=== PATIENT | male | born 1990 | race African-American/Black ===

== ENCOUNTER 2016-03-29 13:19 | Emergency (ER) | payer OTHER, MEDICAID ==
[~2016-03-29] VITALS: Ht 177.8 cm; Wt 85.0 kg
[2016-03-29 13:21] VITALS: BP 140/91; PULSE 95; RESP 16; TEMP 98.9; O2SAT 100
[2016-03-29] MEDS ORDERED: ADDE30TA PO (13:23)
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
[2016-03-29] MEDS ORDERED: MORPHINE SULFATE 8 MG/ML INJ IM ONE (13:45)
[2016-03-29] MEDS ORDERED: MORPHINE SULFATE 4 MG/ML INJ IV PUSH ONE (14:00)
[2016-03-29] MEDS ORDERED: SODIUM CHLOR 0.9% 1000 ML INJ 1,000 ML IV ONE (14:00)
[2016-03-29] MEDS ORDERED: ONDANSETRON HCL 4 MG/2 ML VIAL IV PUSH ONE (14:00)
[2016-03-29 14:39] VITALS: BP 155/84; PULSE 91; RESP 18; O2SAT 100
[2016-03-29] MEDS ORDERED: IOHEXOL 350 MG/ML 10 ML VIAL (for RAD DIAG) IV ONE (15:54)
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
[2016-03-29] MEDS ORDERED: CYCL1TAB29 PO (16:56)
[2016-03-29] MEDS ORDERED: IBUP800T23 PO (16:56)
[2016-03-29] MEDS ORDERED: LIDO1SOL8 SWISH-SWAL (17:07)
[2016-03-29 17:20] VITALS: BP 130/76; PULSE 74; RESP 18; O2SAT 98
== END 2016-03-29 17:21 | disposition home or self-care (01) ==
LOC: PHEFT 13:19
DX: M79.1 Myalgia (principal); R10.12 Left upper quadrant pain; Z72.0 Tobacco use; V48.5XXA Car driver injured in noncollision transport accident in traffic accident, initial encounter; Y99.8 Other external cause status
CPT/HCPCS: 70450; 71260; 72125; 74177; 96361; 96374; 96375; 99284; J2270; J2405; J7030; Q9967

== ENCOUNTER 2016-07-04 19:31 | Emergency (ER) | payer MEDICAID ==
[~2016-07-04] VITALS: Ht 177.8 cm; Wt 87.8 kg
[~2016-07-04 19:31] MED LIST: ADDE30TA PO; CYCL1TAB29 PO; IBUP800T23 PO; LIDO1SOL8 SWISH-SWAL
[2016-07-04 19:34] VITALS: BP 140/70; PULSE 78; RESP 16; TEMP 98.4; O2SAT 99
[2016-07-04 20:05] VITALS: BP 124/52; PULSE 76; RESP 17; O2SAT 96
[2016-07-04] MEDS ORDERED: SODIUM CHLORIDE 0.9% FLUSH 10 ML FLUSH IV FLUSH PRN (20:15)
--- NOTE | 2016-07-04 20:19 | PD ---
HPI Chief Complaint: Abnormal Results Time Seen by Provider: 19:58 Travel History International Travel<30 days: No Contact w/Intl Traveler<30days: No Traveled to known affect area: No History of Present Illness HPI 26-year-old male with HIV sent in by his infectious disease doctor for abnormal labs. The patient had laboratory performed on Sunday, 3 days ago, and reports that his liver enzymes were elevated. He tells me he was diagnosed with HIV when he was incarcerated 9 months ago and has not yet started treatment. He drinks alcohol daily stating that when he returns home from work in the evenings he drinks about 12 beers. He denies illicit drug use or IVDU. No abdominal pain. PFSH Past Medical History ADHD: Yes Diminished Hearing: No Social History Alcohol Use: Yes (OCC) Tobacco Use: Yes Substance Use: No Allergies-Medications (Allergen,Severity, Reaction): Coded Allergies: Tramadol (Verified Allergy, Severe, 07/04/16) Reported Meds & Prescriptions Reported Meds & Active Scripts Active No Active Prescriptions or Reported Medications Review of Systems Except as stated in HPI: all other systems reviewed are Neg Physical Exam Narrative GENERAL: Well-developed, well-nourished, comfortable, no acute distress. SKIN: Focused skin assessment warm/dry. No jaundice. HEAD: Atraumatic. Normocephalic. EYES: Pupils equal and round. No scleral icterus. No injection or drainage. ENT: Mucous membranes pink and moist. NECK: Trachea midline. No JVD. CARDIOVASCULAR: Regular rate and rhythm. RESPIRATORY: No accessory muscle use. Clear to auscultation. Breath sounds equal bilaterally. GASTROINTESTINAL: Abdomen soft, non-tender, nondistended. MUSCULOSKELETAL: No obvious deformities. No clubbing. No cyanosis. No edema. NEUROLOGICAL: Awake and alert. No obvious cranial nerve deficits. Motor grossly within normal limits. Normal speech. PSYCHIATRIC: Appropriate mood and affect; insight and judgment normal. Data Data Last Documented VS Vital Signs Date Time Temp Pulse Resp B/P Pulse Ox O2 Delivery O2 Flow Rate FiO2 07/04/16 20:05 Room Air 07/04/16 20:05 76 17 124/52 96 07/04/16 19:34 98.4 Orders Complete Blood Count With Diff (07/04/16 20:03) Comprehensive Metabolic Panel (07/04/16 20:03) Lipase (07/04/16 20:03) Prothrombin Time / Inr (Pt) (07/04/16 20:03) Act Partial Throm Time (Ptt) (07/04/16 20:03) Iv Access Insert/Monitor (07/04/16 20:03) Ecg Monitoring (07/04/16 20:03) Oximetry (07/04/16 20:03) Sodium Chloride 0.9% Flush (Ns Flush) (07/04/16 20:15) Us Abdomen Gallbladder (07/04/16 21:21) Labs Laboratory Tests Test 07/04/16 20:41 White Blood Count 8.5 TH/MM3 Red Blood Count 4.65 MIL/MM3 Hemoglobin 13.9 GM/DL Hematocrit 39.7 % Mean Corpuscular Volume 85.5 FL Mean Corpuscular Hemoglobin 30.0 PG Mean Corpuscular Hemoglobin 35.0 % Concent Red Cell Distribution Width 12.5 % Platelet Count 223 TH/MM3 Mean Platelet Volume 8.4 FL Neutrophils (%) (Auto) 64.9 % Lymphocytes (%) (Auto) 22.8 % Monocytes (%) (Auto) 9.3 % Eosinophils (%) (Auto) 2.0 % Basophils (%) (Auto) 1.0 % Neutrophils # (Auto) 5.5 TH/MM3 Lymphocytes # (Auto) 1.9 TH/MM3 Monocytes # (Auto) 0.8 TH/MM3 Eosinophils # (Auto) 0.2 TH/MM3 Basophils # (Auto) 0.1 TH/MM3 CBC Comment DIFF FINAL Differential Comment Prothrombin Time 10.0 SEC Prothromb Time International 0.9 RATIO Ratio Activated Partial 24.7 SEC Thromboplast Time Sodium Level 141 MEQ/L Potassium Level 3.6 MEQ/L Chloride Level 104 MEQ/L Carbon Dioxide Level 32.3 MEQ/L Anion Gap 5 MEQ/L Blood Urea Nitrogen 14 MG/DL Creatinine 1.00 MG/DL Estimat Glomerular Filtration 110 ML/MIN Rate Random Glucose 111 MG/DL Calcium Level 8.8 MG/DL Total Bilirubin 0.4 MG/DL Aspartate Amino Transf 294 U/L (AST/SGOT) Alanine Aminotransferase 259 U/L (ALT/SGPT) Alkaline Phosphatase 106 U/L Total Protein 7.5 GM/DL Albumin 3.9 GM/DL Lipase 130 U/L MDM Medical Decision Making Medical Screen Exam Complete: Yes Emergency Medical Condition: Yes Differential Diagnosis Hepatitis, cirrhosis secondary to alcoholism, hepatic steatosis, cholangitis unlikely, cholelithiasis/cholecystitis unlikely, choledocholithiasis unlikely Narrative Course Vital signs show heart rate 70, blood pressure 140/70, pulse ox 99% on room air , oral temp of 98.4F. CBC is unremarkable. CMP is remarkable for AST 294, ALT of 259, otherwise unremarkable. PT, INR, and PTT are normal. Right upper quadrant ultrasound: LIVER: Normal echotexture without focal lesion or ductal dilatation. COMMON DUCT: No intraluminal mass or stone visualized. GALLBLADDER: Contains no stones, demonstrates no wall thickening or pericholecystic fluid.It is largely decompressed. PANCREAS: Totally obscured by bowel gas. RIGHT KIDNEY: No evidence of hydronephrosis, stone, or mass. CONCLUSION: 1. Pancreas totally obscured by bowel gas. Otherwise, unremarkable exam. Patient was made aware of all findings. He is sleeping comfortably. There is no abdominal tenderness on exam. He is already being followed by an infectious disease doctor for his HIV and reports that he is soon to start antiretroviral therapy. I provided him a copy of his right upper quadrant ultrasound report to take with him to his infectious disease doctor to further workup the patient' s transaminitis which is likely secondary to the patient's history of alcohol abuse, however could also be a viral hepatitis. No history of acetaminophen abuse. He is stable for discharge home with outpatient follow-up. He was informed on when to return to the emergency department Diagnosis Primary Impression: Transaminitis Referrals: Infectious Disease Specialist 3 days Primary Care Physician 3 days Additional Instructions: Follow-up with your infectious disease doctor this week. Return to the emergency department for worsening symptoms or any other concerns. Scripts No Active Prescriptions or Reported Meds Disposition: 01 DISCHARGE HOME Condition: Stable Rick Wilson MD July 04, 2016 20:19
[2016-07-04 20:53] LABS: AUTOMATED NEUTROPHIL # 5.5 TH/MM3 (1.8-7.7); BASOPHIL # 0.1 TH/MM3 (0-0.2); EOSINOPHIL # 0.2 TH/MM3 (0-0.4); HEMATOCRIT 39.7 % (39.0-51.0); HEMO FLAGS DIFF FINAL; LYMPH % 22.8 % (9.0-44.0); LYMPHOCYTE # 1.9 TH/MM3 (1.0-4.8); MEAN CELL VOLUME 85.5 FL (80.0-100.0); MONO % 9.3 % (0.0-8.0); NEUT % 64.9 % (16.0-70.0); PLATELET COUNT 223 TH/MM3 (150-450); RED BLOOD COUNT 4.65 MIL/MM3 (4.50-5.90); RED CELL DISTRIBUTION WIDTH 12.5 % (11.6-17.2); WHITE BLOOD COUNT 8.5 TH/MM3 (4.0-11.0)
[2016-07-04 21:00] LABS: CHLORIDE 104 MEQ/L (98-107); POTASSIUM 3.6 MEQ/L (3.5-5.1); SODIUM (NA) 141 MEQ/L (136-145)
[2016-07-04 21:04] LABS: ANION GAP 5 MEQ/L (5-15); BICARBONATE 32.3 MEQ/L (21.0-32.0); BLOOD UREA NITROGEN 14 MG/DL (7-18)
[2016-07-04 21:05] LABS: APTT (PATIENT) 24.7 SEC (24.3-30.1); INTERNATIONAL NORMALIZED RATIO 0.9 RATIO
[2016-07-04 21:07] LABS: ALT (GPT) 259 U/L (12-78); GLOMERULAR FILTRATION RATE 110 ML/MIN (>89)
[2016-07-04 21:08] LABS: AST (GOT) 294 U/L (15-37); TOTAL BILIRUBIN ADULT 0.4 MG/DL (0.2-1.0)
[2016-07-04 21:10] LABS: ALKALINE PHOSPHATASE 106 U/L (45-117)
[2016-07-04 21:20] VITALS: BP 115/50; PULSE 79; RESP 18; O2SAT 97
[2016-07-04 22:20] VITALS: BP 119/63; PULSE 88; RESP 16; O2SAT 98
--- NOTE | 2016-07-04 22:23 | RADHPO ---
EXAM DATE/TIME: 07/04/2016 21:55 [facility] COMPARISON: No previous studies available for comparison. INDICATIONS : Abnormal labs. MEDICAL HISTORY : ETOH use. SURGICAL HISTORY : None. ENCOUNTER: Initial ACUITY: 1 day PAIN SCORE: 2/10 LOCATION: Right upper quadrant MEASUREMENTS: LIVER: 17.8 cm length COMMON DUCT: 4 mm RIGHT KIDNEY: 10.1 x 5.3 x 6.7 cm FINDINGS: LIVER: Normal echotexture without focal lesion or ductal dilatation. COMMON DUCT: No intraluminal mass or stone visualized. GALLBLADDER: Contains no stones, demonstrates no wall thickening or pericholecystic fluid.It is largely decompress ed. PANCREAS: Totally obscured by bowel gas. RIGHT KIDNEY: No evidence of hydronephrosis, stone, or mass. CONCLUSION: 1. Pancreas totally obscured by bowel gas. Otherwise, unremarkable exam. Orlando Tai Jr., MD on July 04, 2016 at 22:19 Board Certified Radiologist. This report was verified electronically.
== END 2016-07-04 23:15 | disposition home or self-care (01) ==
LOC: PHED 19:31
DX: R74.0 Nonspecific elevation of levels of transaminase and lactic acid dehydrogenase [LDH] (principal); Z72.0 Tobacco use; Z21 Asymptomatic human immunodeficiency virus [HIV] infection status; Z88.5 Allergy status to narcotic agent
CPT/HCPCS: 76705; 80053; 83690; 85025; 85610; 85730; 99284

== ENCOUNTER 2016-09-03 11:51 | Emergency (ER) | payer MEDICAID ==
[~2016-09-03] VITALS: Ht 180.3 cm; Wt 90.0 kg
[2016-09-03 12:08] VITALS: BP 135/72; PULSE 100; RESP 18; TEMP 98.2; O2SAT 97
[2016-09-03 13:22] LABS: AUTOMATED NEUTROPHIL # 7.9 TH/MM3 (1.8-7.7); BASOPHIL % 0.3 % (0.0-2.0); EOSINOPHIL % 0.4 % (0.0-4.0); HEMATOCRIT 46.7 % (39.0-51.0); HEMO FLAGS DIFF FINAL; LYMPHOCYTE # 1.8 TH/MM3 (1.0-4.8); MEAN CELL VOLUME 89.2 FL (80.0-100.0); MEAN CORPUSCULAR HEMOGLOBIN 30.8 PG (27.0-34.0); MEAN CORPUSCULAR HGB CONC 34.6 % (32.0-36.0); MONO % 6.3 % (0.0-8.0); PLATELET COUNT 230 TH/MM3 (150-450); RED BLOOD COUNT 5.24 MIL/MM3 (4.50-5.90); RED CELL DISTRIBUTION WIDTH 14.4 % (11.6-17.2); WHITE BLOOD COUNT 10.4 TH/MM3 (4.0-11.0)
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
[2016-09-03 13:29] LABS: AMPHETAMINE, URINE NEG (NEG); BARBITURATES, URINE NEG (NEG); COCAINE, URINE POS (NEG)
[2016-09-03 13:40] LABS: ALT (GPT) 59 U/L (12-78); ANION GAP 9 MEQ/L (5-15); AST (GOT) 29 U/L (15-37); BICARBONATE 27.5 MEQ/L (21.0-32.0); BLOOD UREA NITROGEN 11 MG/DL (7-18); CHLORIDE 106 MEQ/L (98-107); GLOMERULAR FILTRATION RATE 98 ML/MIN (>89); POTASSIUM 3.9 MEQ/L (3.5-5.1); SODIUM (NA) 142 MEQ/L (136-145)
[2016-09-03 13:42] LABS: ALKALINE PHOSPHATASE 99 U/L (45-117); TOTAL BILIRUBIN ADULT 0.4 MG/DL (0.2-1.0)
[2016-09-03 14:11] VITALS: BP 134/79; PULSE 95; RESP 20; TEMP 98.2; O2SAT 99
[2016-09-03 17:19] VITALS: BP 139/79; TEMP 98.3
== END 2016-09-03 15:40 | disposition home or self-care (01) ==
LOC: NEPD 11:51 → NEPJ 15:40
DX: F19.94 Other psychoactive substance use, unspecified with psychoactive substance-induced mood disorder (principal); F10.120 Alcohol abuse with intoxication, uncomplicated; Y90.6 Blood alcohol level of 120-199 mg/100 ml; Z72.0 Tobacco use
CPT/HCPCS: 80053; 80307; 85025; 99284